=== PATIENT | female | born 1970 | race Caucasian/White ===

== ENCOUNTER → 2017-12-24 13:53 | Outpatient (CLI) | payer OTHER, SELFPAY ==
[2017-12-30 16:48] LABS: HPV HC, High Risk Negative (Negative)
[2017-12-30 16:49] LABS: HPV Reflexed? YES, CHARGE PATIENT
== END ==
PROVIDERS: Visit Provider Obstetrics & Gynecology
DX: Z12.4 Encounter for screening for malignant neoplasm of cervix (principal)
CPT/HCPCS: 87624; 88175; G0145

== ENCOUNTER → 2018-01-08 07:17 | Outpatient (CLI) | payer OTHER, SELFPAY | PROVIDERS: Visit Provider Obstetrics & Gynecology | DX: Z12.31 Encounter for screening mammogram for malignant neoplasm of breast (principal) | CPT/HCPCS: 77063; 77067 ==

== ENCOUNTER 2021-01-16 00:02 | Emergency (ER) | payer BC, SELFPAY ==
[2021-01-16 00:02] VITALS: BP 182/99; PULSE 77; RESP 18; TEMP 36.2; O2SAT 100; BMI 32.0
--- NOTE | 2021-01-16 01:18 | EX.ED.VISEXT ---
HPI History of Present Illness Chief Complaint: Bite Narrative Narrative: 50-year-old female presenting with dog bite to the left forearm. She stated 2 lacerations to the volar forearm as well as a couple of punctate areas on the medial lateral wrist. She states these were her dogs at home that were fighting. She stuck her arm in the middle and did not realize she had been bit. She does not have significant pain. None of the tonsillectomy teeth. She states that she did not irrigate the wound prior to coming. Last tetanus immunization is unknown. She states that her dogs are fully vaccinated including rabies vaccine. Tetanus Immunization: Unknown ROS ROS ED Constitutional Constitutional ED: Denies chills or fever(s) Eyes Eyes: Denies blurry vision or change in vision ENT ENT ED: Denies rhinorrhea or sore throat Cardiovascular Cardiovascular: Denies chest pain or palpitations Respiratory/Chest Respiratory/Chest: Denies cough or dyspnea Gastrointestinal Gastrointestinal: Denies abdominal pain, nausea or vomiting Genitourinary Genitourinary ED: Denies dysuria or hematuria Musculoskeletal Musculoskeletal: Denies arthralgias or myalgias Integumentary Reports other Details: Lacerations and abrasions left forearm Neurologic Neurologic: Denies headache(s) or paresthesias PFSH PFSH Medical History Hypertension Non-smoker Home Medications Ibuprofen [Motrin] 800 mg PO TID PRN PRN #21 tab 03/23/14 [Rx Last Taken Unknown] oxycodone-acetaminophen 1 - 2 tab PO Q4H PRN PRN #20 tab 03/23/14 [Rx Last Taken Unknown] amoxicillin-pot clavulanate [Augmentin] 1 tab PO BID 10 Days #20 tab 01/16/21 [Rx Last Taken Unknown] Allergy/AdvReac Type Severity Reaction Status Date / Time No Known Allergies Allergy Verified 03/23/14 12:34 Social History Smoking Status: Never smoker EXAM Physical Exam Const Vital Signs: 01/16/21 00:02 Temperature 97.2 F L Temperature Source Temporal Pulse Rate 77 Respiratory Rate 18 Blood Pressure 182/99 H Blood Pressure Mean 126 Pulse Ox 100 Oxygen Delivery Method Room Air Positive well nourished General Appearance ED: NAD HEENT normocephalic and atraumatic Eyes PERRL and EOMs intact bilaterally Extremity full ROM Extremity Narrative: Left forearm has a 1.5 cm laceration with some gaping of the wound. There is also a 0.5 cm laceration medial to that of the left forearm. These are both on the volar surface. She has 2 punctate wounds on the left lateral and left medial wrist. Left hand neurovascular intact brisk cap refill to all 5 fingers. General Extremety ED: Negative for deformity, edema or tenderness General Extremity: Negative for deformity or edema Neuro oriented x3 Sensorium / Orientation: alert Psych mental status grossly normal and thought process normal Skin Skin Narrative: Lacerations as described above. MDM MDM MDM Narrative Medical decision making narrative: Patient has lacerations from dog bites at home. She states her dog is fully vaccinated and everything including rabies. Patient has no concern for rabies. Patient's wounds will be cleaned and dressed. She is given wound care instructions. Her tetanus was updated. She did not require anything for pain. She is given signs and symptoms warrant return to the ED for reevaluation. Impression: 1. Dog bite 2. 1.5 cm laceration left volar forearm 3. 0.5 cm laceration volar forearm 4. Punctate wounds to left wrist x2 Discharge Plan Triage Chief Complaint: Bite ED Provider: Peng Jones Dx/Rx/DC Orders Instructions: ED Dog Bite Prescriptions: New amoxicillin-pot clavulanate [Augmentin] 875-125 mg tablet 1 tab PO BID 10 Days Qty: 20 RF: 0 No Action oxycodone-acetaminophen 1 TABLET tablet 1 - 2 tab PO Q4H PRN PRN (Reason: Pain) Qty: 20 RF: 0 Ibuprofen [Motrin] 800 MG tablet 800 mg PO TID PRN PRN (Reason: Pain) Qty: 21 RF: 0 Primary Care Provider: Ethan Lewis Referrals: Ethan Lewis MD [Primary Care Provider] - Disposition Disposition: Home, Self Care
[2021-01-16] MEDS: Amox/Clavulanate 875 MG Tablet PO (01:23)
[2021-01-16] MEDS: Diphth,Pertuss(Acell),Tet Vac 0.5 ML Vial IM (01:23)
[2021-01-16 02:01] VITALS: RESP 16
== END 2021-01-16 02:01 | disposition home or self-care (01) ==
PROVIDERS: Emergency Provider Student in an Organized Health Care Education/Training Program; PCP Family Medicine
DX: S51.812A Laceration without foreign body of left forearm, initial encounter (principal); S61.532A Puncture wound without foreign body of left wrist, initial encounter; W54.0XXA Bitten by dog, initial encounter; Y93.89 Activity, other specified; Y92.009 Unspecified place in unspecified non-institutional (private) residence as the place of occurrence of the external cause; Y99.8 Other external cause status
CPT/HCPCS: 90471; 90715; 99282